=== PATIENT | female | born 1970 | race Asian ===

== ENCOUNTER 2018-07-18 11:23 | Emergency (ER) | payer BC ==
[2018-07-18 11:50] LABS: URINE BLOOD (Dip) POC Negative (NEGATIVE); URINE GLUCOSE (Dip) POC Negative (NEGATIVE); URINE KETONES (Dip) POC Negative (NEGATIVE); URINE LEUKOCYTE EST (Dip) POC Negative (NEGATIVE); URINE NITRITE (Dip) POC Negative (NEGATIVE); URINE TOTAL PROTEIN POC Negative (NEGATIVE)
[2018-07-18 11:50] LABS: URINE PH (Dip) POC 6.5 (5.0-8.5)
== END 2018-07-18 12:51 | disposition home or self-care (01) ==
LOC: FTE 11:23
DX: R10.2 Pelvic and perineal pain (principal)
CPT/HCPCS: 76856; 81003; 99284-25

== ENCOUNTER 2018-11-26 10:02 | Emergency (ER) | payer BC ==
[2018-11-26 10:56] LABS: ADD MAN DIFF? NO
[2018-11-26 11:02] LABS: WHITE BLOOD COUNT 4.8 10^3/ul (4.8-10.8)
[2018-11-26 11:02] LABS: BASOPHILS % 0.6 % (0.0-2.0); EOSINOPHILS # 0.1 10^3/ul (0.0-0.5); EOSINOPHILS % 1.3 % (0.0-7.0); HEMATOCRIT 38.7 % (37.0-47.0); HEMOGLOBIN 12.4 g/dl (12.0-16.0); LYMPHOCYTES # 1.6 10^3/ul (0.8-2.9); LYMPHOCYTES % 33.2 % (15.0-51.0); MEAN CORPUSCULAR HEMOGLOBIN 28.1 pg (29.0-33.0); MEAN CORPUSCULAR VOLUME 87.6 fl (82.0-101.0); MEAN PLATELET VOLUME 9.7 fl (7.4-10.4); MONOCYTE # 0.4 10^3/ul (0.3-0.9); MONOCYTES % 7.7 % (0.0-11.0); NEUTROPHIL # 2.7 10^3/ul (1.6-7.5); PLATELET COUNT 290 10^3/UL (140-415); RED BLOOD COUNT 4.42 10^6/ul (4.20-5.40); RED CELL DISTRIBUTION WIDTH 12.1 % (11.5-14.5)
[2018-11-26 11:15] LABS: HEMOGLOBIN A1C 5.5 % (0-5.9)
[2018-11-26 11:18] LABS: ANION GAP 9 (5-13); BLOOD UREA NITROGEN 13 mg/dl (7-20); CALCIUM 9.4 mg/dl (8.4-10.2); CARBON DIOXIDE 25 mmol/L (21-31); CHLORIDE 107 mmol/L (97-110); CHOL/HDL RATIO 2.7 RATIO; CHOLESTEROL 152 mg/dl (100-200); CREATININE 0.69 mg/dl (0.44-1.00); Estimated GFR > 60 mL/min (>60); GLUCOSE 144 mg/dl (70-220); HDL CHOLESTEROL 55 mg/dl (37-92); LDL CHOLESTEROL,CALCULATED 84 mg/dl; POTASSIUM 3.9 mmol/L (3.5-5.1); SODIUM 141 mmol/L (135-144); TRIGLYCERIDES 67 mg/dl (0-149)
[2018-11-26 11:21] LABS: INR 0.95; PROTIME 12.8 Sec (11.9-14.9)
[2018-11-26 11:29] LABS: TROPONIN-I < 0.012 ng/ml (0.000-0.120)
== END 2018-11-26 16:39 | disposition home or self-care (01) ==
LOC: E/R 10:02
DX: R20.2 Paresthesia of skin (principal); R40.2142 Coma scale, eyes open, spontaneous, at arrival to emergency department; R40.2252 Coma scale, best verbal response, oriented, at arrival to emergency department; R40.2362 Coma scale, best motor response, obeys commands, at arrival to emergency department; R53.1 Weakness; Z86.73 Personal history of transient ischemic attack (TIA), and cerebral infarction without residual deficits
CPT/HCPCS: 36415; 70544; 70549; 70551; 71045; 80048; 80061; 81025; 82962; 83036; 84484; 85025; 85610; 85730; 93005; 99285-25

== ENCOUNTER 2018-12-15 18:02 | Emergency (ER) | payer BC ==
[2018-12-15 18:47] LABS: ADD MAN DIFF? NO
[2018-12-15 18:50] LABS: WHITE BLOOD COUNT 6.9 10^3/ul (4.8-10.8)
[2018-12-15 18:50] LABS: BASOPHILS % 0.4 % (0.0-2.0); EOSINOPHILS # 0.1 10^3/ul (0.0-0.5); HEMATOCRIT 35.3 % (37.0-47.0); HEMOGLOBIN 11.3 g/dl (12.0-16.0); LYMPHOCYTES # 2.1 10^3/ul (0.8-2.9); LYMPHOCYTES % 30.2 % (15.0-51.0); MEAN CORPUSCULAR VOLUME 90.5 fl (82.0-101.0); MEAN PLATELET VOLUME 9.5 fl (7.4-10.4); MONOCYTE # 0.7 10^3/ul (0.3-0.9); MONOCYTES % 10.6 % (0.0-11.0); NEUTROPHIL # 3.9 10^3/ul (1.6-7.5); NEUTROPHILS % 56.5 % (39.0-77.0); PLATELET COUNT 284 10^3/UL (140-415); RED CELL DISTRIBUTION WIDTH 12.7 % (11.5-14.5)
[2018-12-15] MEDS: LORAZEPAM 0.5 MG TAB PO (19:06)
[2018-12-15] MEDS: HYDROCODONE/APAP (5/325) TAB PO (19:07)
[2018-12-15] MEDS: SOD CHLORIDE 0.9% 1,000 ML IV (19:07)
[2018-12-15 19:08] LABS: ANION GAP 11 (5-13); CARBON DIOXIDE 27 mmol/L (21-31); CHLORIDE 102 mmol/L (97-110); Estimated GFR > 60 mL/min (>60); POTASSIUM 4.3 mmol/L (3.5-5.1); SODIUM 140 mmol/L (135-144)
[2018-12-15 19:17] LABS: BLOOD UREA NITROGEN 10 mg/dl (7-20); CALCIUM 9.5 mg/dl (8.4-10.2); CREATININE 0.61 mg/dl (0.44-1.00); GLUCOSE 100 mg/dl (70-220)
== END 2018-12-15 21:09 | disposition home or self-care (01) ==
LOC: E/R 18:02 → FTE 21:09
DX: N93.8 Other specified abnormal uterine and vaginal bleeding (principal); R10.2 Pelvic and perineal pain
CPT/HCPCS: 36415; 76830; 76856; 80048; 84703; 85025; 99285-25